=== PATIENT | male | born 1960 | race Hispanic/Latino ===

== ENCOUNTER 2018-02-16 21:42 | Emergency (ER) | payer BC, OTHER ==
[2018-02-16 23:17] LABS: Hemoglobin 14.9 g/dL (14.0-18.0); Mean Corpuscular HGB CONC 35.8 g/dL (32.0-36.0); Mean Corpuscular Hemoglobin 31.9 pg (27.0-31.0); Mean Corpuscular Volume 89.2 fL (78.0-98.0); Mean Platelet Volume 8.2 fL (7.4-10.4); Platelet Count 208 thou/uL (130-400); Red Blood Cell (RBC) Count 4.66 mill/uL (4.70-6.10); White Blood Cell (WBC) Count 11.2 thou/uL (4.8-10.8)
[2018-02-16 23:32] LABS: Band 11 % (5-11); Lymphocytes 9 % (21-51); MDiff Complete? YES; Monocytes 5 % (0-10); Neutrophil 75 % (42-75); PLT Morphology Comment Appears Adequate; RBC Morphology Normal
--- NOTE | 2018-02-16 23:40 | ULT ---
VENOUS DUPLEX SONOGRAM LEFT LOWER EXTREMITY 02/16/18 HISTORY: Left leg pain and edema. FINDINGS: Left common femoral vein and greater saphenous junction were evaluated along with the femoral, deep f emoral, popliteal and posterior tibial veins. There is good color and spectral doppler flow, compress ion, and augmentation. IMPRESSION: No sonographic evidence of DVT left lower extremity. POS: AP[facility]
--- NOTE | 2018-02-16 23:43 | RAD ---
LEFT FOOT THREE VIEWS: 02/16/18 HISTORY: Left foot pain. FINDINGS: Lisfranc joint alignment is anatomic. Plantar arch maintained. No acute fracture, dislocation, or agg ressive osseous erosions. Calcification overlies the arterial structures. IMPRESSION: No acute osseous abnormalities are demonstrated. Atherosclerosis. POS: AP[facility]
[2018-02-16] MEDS ORDERED: Ketorolac Tromethamine 30 MG/ML VIAL ONE (23:47)
[2018-02-16] MEDS ORDERED: cefTRIAXone\\ROCEPHIN 2 GM VIAL ONE (23:47)
[2018-02-16 23:50] LABS: ALT (SGPT) 37 U/L (8-55); AST (SGOT) 43 U/L (5-34); Albumin 4.2 g/dL (3.5-5.0); Alkaline Phosphatase 101 U/L (40-150); Anion Gap 17 mmol/L (10-20); BUN (Urea Nitrogen) 18 mg/dL (8.4-25.7); Bilirubin, Total 0.5 mg/dL (0.2-1.2); Calc. Creatinine Clearance 0 mL/min (70-130); Calcium 9.6 mg/dL (7.8-10.44); Carbon Dioxide 21 mmol/L (22-29); Chloride 105 mmol/L (98-107); Estimated GFR-MDRD 67; Globulin 3.8 g/dL (2.4-3.5); Glucose 131 mg/dL (70-105); Potassium 4.6 mmol/L (3.5-5.1); Sodium 138 mmol/L (136-145)
[2018-02-17 00:13] LABS: Bilirubin Negative (Negative); Blood, Urine Negative (Negative); Clarity CLEAR (Clear); Glucose, Urine (Dipstick) Negative (Negative); Leukocyte Negative (Negative); Nitrite Negative (Negative); Protein, Urine (Dipstick) Negative (Neg-Trace); Specific Gravity, Urine 1.026 (1.002-1.036); Urobilinogen 0.2 mg/dL (0.2-1.0)
== END 2018-02-17 02:30 | disposition home or self-care (01) ==
LOC: ERS 21:42
DX: L03.116 Cellulitis of left lower limb (principal)
CPT/HCPCS: 36415; 80053; 81003; 83605; 85025; 85379; 87040; 96365; 96367; 96375; J0696; J1885; J2270; J3370